=== PATIENT | female | born 1975 | race Caucasian/White ===

== ENCOUNTER 2019-08-24 09:15 | Emergency (ER) | payer OTHER ==
[2019-08-24 09:26] VITALS: BP 101/52; PULSE 80; TEMP 97.8; BMI 23.8
[2019-08-24] MEDS ORDERED: KETOROLAC TROMETHAMINE 60 MG/2 ML VIAL IM ONE (10:38)
[2019-08-24] MEDS ORDERED: KETOROLAC TROMETHAMINE 60 MG/2 ML VIAL ONE (10:39)
--- NOTE | 2019-08-24 10:44 | PDOC ---
History of Present Illness - General Chief Complaint: Back Pain Stated Complaint: BACK PAIN Time Seen by Provider: 08/24/19 10:35 History Source: Patient Exam Limitations: No Limitations (right lower back pain) - History of Present Illness Occurred: reports: yesterday Pain Location: reports: back Associated Symptoms (Fall): denies symptoms, chest pain, lightheadedness, nausea /vomiting Past History - Travel Traveled outside of the country in the last 30 days: No Close contact w/someone who was outside of country & ill: No - Past Medical History Allergies/Adverse Reactions: Allergies Allergy/AdvReac Type Severity Reaction Status Date / Time No Known Allergies Allergy Verified 08/24/19 09:23 Home Medications: Ambulatory Orders Nitrofurantoin Monohyd/M-Cryst [Macrobid -] 100 mg PO BID #14 capsule 04/13/17 Cyclobenzaprine HCl [Flexeril -] 10 mg PO HS #7 tablet 08/24/19 Anemia: Yes - Immunization History Immunization Up to Date: Yes - Psycho Social/Smoking Cessation Hx Smoking History: Never smoked Have you smoked in the past 12 months: No Hx Alcohol Use: No Drug/Substance Use Hx: No Substance Use Type: None Review of Systems - Review of Systems Constitutional: No: Chills, Fever Cardiac (ROS): No: Chest Pain ABD/GI: No: Nausea, Vomiting Musculoskeletal: Yes: Back Pain. No: Joint Pain, Muscle Pain, Muscle Weakness Neurological: No: Numbness, Paresthesia, Tingling, Weakness, Unsteady Gait, Dizziness *Physical Exam - Vital Signs Last Vital Signs Temp Pulse Resp BP Pulse Ox 97.8 F 80 17 101/52 L 100 08/24/19 09:23 08/24/19 09:23 08/24/19 09:23 08/24/19 09:23 08/24/19 09:23 - Physical Exam General Appearance: Yes: Nourished, Appropriately Dressed HEENT: positive: EOMI, EN[place]UEL Respiratory/Chest: positive: Lungs Clear, Normal Breath Sounds Cardiovascular: positive: Regular Rhythm, Regular Rate, S1, S2 Gastrointestinal/Abdominal: positive: Normal Bowel Sounds, Soft Musculoskeletal: positive: Muscle Spasm (+ paraspinal tenderness on the right side, no CVA tenderness) Extremity: positive: Normal Capillary Refill Integumentary: positive: Normal Color Neurologic: positive: science specialist II-XII NML intact, Fully Oriented, Alert, Normal Mood/ Affect, Normal Response, Motor Strength 11/16 Medical Decision Making - Medical Decision Making 08/24/19 11:47 44y/o F with lower back pain after attempting to pick shampoo while taking shower yesterday denies UTI sx or trauma no b/b incontinence or saddle anesthesia. 08/24/19 13:32 UA wnl LMP was a week ago pt requesting xray even no fall hx xray neg warm compress advised Discharge - Discharge Information Problems reviewed: Yes Clinical Impression/Diagnosis: Back muscle spasm Condition: Stable Disposition: HOME - Admission No - Additional Discharge Information Prescriptions: Cyclobenzaprine HCl [Flexeril -] 10 mg PO HS #7 tablet Prescription Drug Monitoring Program (I-STOP) results: I-STOP not reviewed - Follow up/Referral - Patient Discharge Instructions Patient Printed Discharge Instructions: DI for Muscle Spasm Additional Instructions: Your x-ray was normal today. Your exam is consistent for muscle spasm a muscle relaxant was sent to the pharmacy. Please be advised do not drive or operate any heavy machinery while taking the muscle relaxant as this can cause dizziness. You may take Tylenol for pain as well. Return to the emergency room if worsening symptoms occurs otherwise you may follow-up with your primary care doctor. - Post Discharge Activity
[2019-08-24 12:25] LABS: HYALINE CASTS 1 /lpf (0-8); URINE APPEARANCE CLEAR; URINE BILIRUBIN NEGATIVE (NEGATIVE); URINE COLOR YELLOW; URINE GLUCOSE (UA) NEGATIVE (NEGATIVE); URINE KETONE NEGATIVE (NEGATIVE); URINE LEUK ESTERASE NEGATIVE (NEGATIVE); URINE NITRITE NEGATIVE (NEGATIVE); URINE PROTEIN NEGATIVE (NEGATIVE); URINE RBC 6 /hpf (0-4); URINE UROBILINOGEN 0.2 mg/dL (0.2-1.0); URINE WBC 2 /hpf (0-5)
== END 2019-08-24 13:21 | disposition home or self-care (01) ==
LOC: JERFT 09:15
PROC: 3E0233Z Introduction of Anti-inflammatory into Muscle, Percutaneous Approach (ICD-10-PCS; principal; 2019-08-24)
DX: M62.830 Muscle spasm of back (principal)
CPT/HCPCS: 72100-TC-FY; 81003; 96372; 99284-25